=== PATIENT | female | born 1985 | race Caucasian/White ===

== ENCOUNTER 2023-04-30 17:27 | Emergency (ER) | payer OTHER, SELFPAY ==
[2023-04-30 17:32] VITALS: BP 105/67; PULSE 78; RESP 18; TEMP 36.8; O2SAT 99
--- OUTSIDE RECORDS SUMMARY | 2023-04-30 17:33 | XMS_ITS | Continuity of Care Document ---
Author Name Unknown Organization [facility] Address [address] [place] [address]- Care Team Providers Care Rag Sorter Name Role Phone Not on Staff, PCP Primary Care Physician Unavail able Encounter [facility] [place] Date(s): 03/23/22 - 03/24/[address] [address]- Discharge Disposition: A-D/C Home Attending Physician: Ramirez Coats MD Admitting Physician: Ramirez Coats MD Referring Physician: Not on Staff, Referring MD Allergies, Adverse Reactions, Alerts No Known Medication Allergies Medications Bactrim DS 800 mg-160 mg oral tablet 1 tablet, By Mouth, 2 times a day, for 7 days, # 14 tablet, 0 Refills, Acute 03/30/22 23:58:00 EDT,03/23/22 23:58:00 EDT, Tablet, [facility]/pharm[facility] #[id number], Partial fill upon patient request if the prescription is for a schedule II opioid drug., 1 tablet By... Start Date: 03/23/22 Stop Date: 03/30/22 Status: Ordered Vital Signs Most recent to oldest [Reference Range]: 1 Height 158 cm (03/23/22 10:00 PM) Weight 50 kg (03/23/22 10:00 PM) Oxygen Saturation [94-100 %] 100 % (03/23/22 10:00 PM) Pulse Rate [55-90 bpm] 80 bpm (03/23/22 10:00 PM) Blood Pressure [90-138/55-84 mm Hg] 113/ 72mm Hg (03/23/22 10:00 PM) Respiratory Rate [16-30 br/min] 17 br/mi n (03/23/22 10:00 PM) Temperature [96.8-100.4 DegF] 98.1 DegF (03/23/22 10:00 PM) Mode of Delivery (Oxygen) Room air (03/23/22 10:00 PM) Blood pressure sites Arm, right (03/23/22 10:00 PM) Temperature Route Temporal (03/23/22 10:00 PM) Dry Weight 50 kg (03/23/22 10:00 PM)
[2023-04-30] MEDS: Ketorolac 30 MG/ML VIAL IM (18:13)
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
[2023-04-30 20:17] VITALS: BP 107/69; PULSE 64; RESP 14; TEMP 36.6; O2SAT 99
--- NOTE | 2023-05-01 09:38 | NUR.NOTE ---
Nursing Note: Accessed pt chart for [facility] billing.
== END 2023-04-30 20:19 | disposition home or self-care (01) ==
PROVIDERS: Emergency Provider Nurse Practitioner Family
DX: S49.82XA Other specified injuries of left shoulder and upper arm, initial encounter (principal); S50.312A Abrasion of left elbow, initial encounter; S50.812A Abrasion of left forearm, initial encounter; V18.4XXA Pedal cycle driver injured in noncollision transport accident in traffic accident, initial encounter; Y92.482 Bike path as the place of occurrence of the external cause; Y93.55 Activity, bike riding; Y99.9 Unspecified external cause status
CPT/HCPCS: 81025; 99283; 73000; 73030; J1885